=== PATIENT | male | born 1990 ===

== ENCOUNTER 2021-06-14 10:15 | Emergency (ER) | payer MEDICAID ==
[~2021-06-14] VITALS: Ht 198.1 cm; Wt 104.5 kg
[2021-06-14 10:44] VITALS: BP 157/90; PULSE 118; TEMP 98.5
[2021-06-14 11:44] LABS: BASO % 0.3 % (0.0-2.0); EOS % 0.1 % (0.0-4.0); GRAN # 5.6 K/mm3 (1.4-6.5); GRAN % 74.7 % (42.2-75.2); HEMATOCRIT 47.6 % (42.0-52.0); HEMOGLOBIN 16.2 g/dl (13.5-18.0); LYMPH # 1.2 K/mm3 (1.2-3.4); LYMPH % 16.5 % (20.0-51.0); MEAN CELL VOLUME 88 fl (80.0-100.0); MEAN CORPUSCULAR HEMOGLOBIN 30 pg (27-31); MEAN CORPUSCULAR HGB CONC 34 g/dl (33.0-37.0); MEAN PLATELET VOLUME 10.1 fl (7.4-10.4); MONO # 0.6 K/mm3 (0.1-0.6); MONO % 8.3 % (1.7-9.3); PLATELET COUNT 322 K/mm3 (130-400); REDCELL DISTRIBUTION WIDTH-CV 12.4 % (11.5-14.5)
[2021-06-14 12:18] LABS: ALANINE AMINOTRANSFERASE 20 U/L (0-55); ALBUMIN 4.9 gm/dL (3.5-5.0); ALKALINE PHOSPHATASE 78 U/L (40-150); ANION GAP 9 mmol/L (7-16); AST,SGOT 18 U/L (5-34); BILIRUBIN,TOTAL 0.5 mg/dL (0.2-1.2); BLOOD UREA NITROGEN 7 mg/dL (9-21); CALCIUM 10.1 mg/dL (8.4-10.2); CARBON DIOXIDE 24 mmol/L (22-29); CHLORIDE 108 mmol/L (98-107); GLUCOSE 93 mg/dL (70-99); POTASSIUM 4.1 mmol/L (3.5-4.5); SODIUM 141 mmol/L (136-145); TOTAL PROTEIN 7.6 gm/dL (6.2-8.1)
[2021-06-14 12:19] LABS: ACETAMINOPHEN < 1.0 ug/mL (10-30); ALCOHOL(ethanol),MEDICAL < 10 mg/dL (0-10); SALICYLATE < 5.0 mg/dL (15.0-30.0)
[2021-06-14 12:42] LABS: COLLECTION METHOD CLEAN CATCH
[2021-06-14 12:48] LABS: MUCOUS Present (NOT PRESENT); PH 6 (5-8); SQUAMOUS EPITHELIAL 0-2 /hpf (0-10); URINE APPEARANCE Clear (CLEAR/HAZY); URINE BACTERIA None Seen /hpf (NONE SEEN); URINE BILIRUBIN Negative (NEGATIVE); URINE BLOOD Negative (NEGATIVE); URINE COLOR Straw (YELLOW); URINE GLUCOSE Negative (NEGATIVE); URINE KETONE Negative (NEGATIVE); URINE LEUKOCYTE ESTERASE Negative (NEGATIVE); URINE NITRATE Negative (NEGATIVE); URINE PROTEIN(semi-quant) Negative (NEGATIVE); URINE RBC None Seen /hpf (0-2); URINE UROBILINOGEN Negative (NEGATIVE)
[2021-06-14 12:59] LABS: TRICYCLIC ANTIDEPRESS URINE NEGATIVE
== END 2021-06-14 17:25 | disposition left against medical advice (07) ==
LOC: COL.ER 10:15
PROVIDERS: Nurse Practitioner
DX: F22 Delusional disorders (principal); F41.9 Anxiety disorder, unspecified; Z20.822 Contact with and (suspected) exposure to COVID-19; Z87.891 Personal history of nicotine dependence